=== PATIENT | female | born 1950 | race Two or more races ===

== ENCOUNTER 2021-03-23 10:07 | Inpatient (IN) | payer MEDICAID, OTHER ==
[~2021-03-23] VITALS: Ht 152.4 cm; Wt 86.2 kg
[2021-03-23 11:08] LABS: Hematocrit 38.9 % (36.0-46.0); Hemoglobin 12.6 g/dL (12.2-16.2); Mean Corpuscular Hemoglobin 30.7 pg (28.0-32.0); Mean Corpuscular Hgb Conc. 32.4 g/dL (32.0-36.0); Mean Corpuscular Volume 94.6 fL (80.0-100.0); Red Blood Cells 4.12 10^6/uL (4.0-5.20); Red Cell Distribution Width 13.7 % (11.8-14.3); White Blood Cell 29.1 10^3/uL (4.4-10.8)
[2021-03-23 11:15] LABS: Basophils % (manual) 0 (0.0-2.0); Blast Cells 0; Eosinophils % (manual) 0 (0-7); Metamyelocytes % 0; Myelocytes % 0; Promyelocytes % 0; Reactive Lymphocytes 0
[2021-03-23 11:22] LABS: Albumin 1.4 g/dL (3.4-5.0); Calcium 8.7 mg/dL (8.5-10.1); Potassium 3.7 mmol/L (3.5-5.1)
[2021-03-23 11:31] LABS: Total Protein 7.1 g/dL (6.4-8.2)
[2021-03-23] MEDS ORDERED: InsuLIN R (HUMAN) 100 UNITS in SODIUM CHL 0.9% 99 ML IV SCH (11:45)
[2021-03-23] MEDS ORDERED: SODIUM CHLORIDE 0.9% 1,000 ML IV ONE ×2 (11:45)
[2021-03-23] MEDS ORDERED: DEXTROSE (50%) 50ML SYRG IV PRN (11:45)
[2021-03-23] MEDS ORDERED: metroNIDAZOLE 500MG/100ML 100 ML IV ONE (11:45)
[2021-03-23] MEDS ORDERED: INSULIN LANTUS (GLARGINE) 1 /0.01ml (100units/ml) SC ONE (11:45)
[2021-03-23] MEDS ORDERED: cefTRIAXone 1GM/50ML D5W 50 ML IV ONE ×2 (11:45→22:57)
[2021-03-23] MEDS: ACCU-CHEK COMFORT CURVE STRIP VI SCH ×8 (12:58→23:08)
[2021-03-23 13:19] LABS: Lactic Acid w/Reflex 7.4 mmol/L (0.4-2.0)
[2021-03-23 13:25] LABS: Band Neutrophils % (manual) 39; Lymphocytes % (manual) 1 (10.0-50.0); Monocytes % (manual) 2 (0-12)
[2021-03-23 14:12] LABS: Urine Bacteria NONE SEEN /hpf (None Seen); Urine Blood Negative /uL (Negative); Urine Hyaline Cast FEW /lpf (0 - 2); Urine Specific Gravity 1.018 (1.001-1.035); Urine WBC 6 /hpf (0 - 5)
[2021-03-23] MEDS ORDERED: HYDROmorphone HCL 2 MG/ML VL IV ONE (14:45)
[2021-03-23] MEDS ORDERED: NITROGLYCERIN 0.4 MG SL TAB SL PRN (15:30)
[2021-03-23] MEDS ORDERED: SODIUM CHLORIDE 0.9% 3,000 ML IV ONE (15:30)
[2021-03-23] MEDS ORDERED: MORPHINE SULFATE INJECTION 2 MG/ML SYRG IV PRN (15:30)
[2021-03-23 16:01] LABS: INR 1.77 (0.9-1.15); Partial Thromboplastin Time 36.5 sec (23.6-33.0)
[2021-03-23] MEDS ORDERED: PHYTONADIONE (VIT K)10 MG/ML 1ML VIAL IV ONE (18:15)
[2021-03-23] MEDS ORDERED: phytonadione 10 MG in SODIUM CHL 0.9% 50 ML IV ONE (18:30)
[2021-03-23] MEDS ORDERED: SODIUM CHLORIDE 0.9% 1,000 ML IV SCH (19:30)
[2021-03-23] MEDS ORDERED: LACTATED RINGER'S 2,000 ML IV ONE (19:30)
[2021-03-23] MEDS ORDERED: LORazepam 0.5 MG TAB PO PRN (19:30)
[2021-03-23] MEDS ORDERED: SOD CHL 0.9%/ KCL 20MEQ 1,000 ML IV PRN (19:30)
[2021-03-23] MEDS ORDERED: DOCUSATE SOD 100 MG CAP PO PRN (19:30)
[2021-03-23] MEDS ORDERED: LACTULOSE 20Gm/30ML SOLN PO PRN (19:30)
[2021-03-23] MEDS ORDERED: HYDROcodone-ACET 5/325MG TAB PO PRN ×2 (19:30)
[2021-03-23] MEDS ORDERED: hydrALAZINE HCL 20 MG/ML VL IV PRN (19:30)
[2021-03-23] MEDS ORDERED: IPRATROPIUM BROM 0.5 MG/2.5ML INH SOL NEB ONE (19:30)
[2021-03-23] MEDS ORDERED: D5W/SOD CHLO 0.9% 1,000 ML IV PRN (19:30)
[2021-03-23] MEDS ORDERED: IPRATROPIUM BROM 0.5 MG/2.5ML INH SOL NEB SCH (22:00)
[2021-03-23] MEDS ORDERED: metroNIDAZOLE 500MG/100ML 100 ML IV SCH (22:00)
[2021-03-23 22:45] LABS: Albumin 1.1 g/dL (3.4-5.0); Calcium 7.2 mg/dL (8.5-10.1); Potassium 3.7 mmol/L (3.5-5.1)
[2021-03-23] MEDS: metroNIDAZOLE 500MG/100ML 100 ML IV SCH (22:51)
[2021-03-23] MEDS: CEFEPIME 1 GM in SODIUM CHL 0.9% 50 ML IV SCH (22:51)
[2021-03-23] MEDS: PANTOPRAZOLE 40 MG/10 ML VIAL INJ IV SCH (22:52)
[2021-03-23 22:54] LABS: INR 1.64 (0.9-1.15); Partial Thromboplastin Time 30.2 sec (23.6-33.0)
[2021-03-23 23:03] LABS: BUN/Creatinine Ratio 59.3; Bilirubin, Total 1.6 mg/dL (0.2-1.0); Phosphorus 3.5 mg/dL (2.5-4.90); Total Protein 5.8 g/dL (6.4-8.2)
[2021-03-24] VITALS (35 sets, daily range): BP systolic 85–167; BP diastolic 34–87
[2021-03-24] MEDS: SODIUM CHLORIDE 0.9% 1,000 ML IV SCH ×4 (00:09→19:45)
[2021-03-24] MEDS: ACCU-CHEK COMFORT CURVE STRIP VI SCH ×8 (00:09→18:00)
[2021-03-24] MEDS: CEFEPIME 1 GM in SODIUM CHL 0.9% 50 ML IV SCH ×3 (07:37→21:00)
[2021-03-24 07:39] LABS: Hematocrit 34.6 % (36.0-46.0); Hemoglobin 11.2 g/dL (12.2-16.2); Mean Corpuscular Hemoglobin 29.7 pg (28.0-32.0); Mean Corpuscular Hgb Conc. 32.3 g/dL (32.0-36.0); Mean Corpuscular Volume 92.1 fL (80.0-100.0); Red Blood Cells 3.76 10^6/uL (4.0-5.20); Red Cell Distribution Width 13.6 % (11.8-14.3); White Blood Cell 24.9 10^3/uL (4.4-10.8)
[2021-03-24 07:45] LABS: Basophils % (manual) 0 (0.0-2.0); Blast Cells 0; Eosinophils % (manual) 0 (0-7); Myelocytes % 0; Promyelocytes % 0; Reactive Lymphocytes 0
[2021-03-24] MEDS: metroNIDAZOLE 500MG/100ML 100 ML IV SCH ×2 (08:01→18:46)
[2021-03-24 08:05] LABS: INR 1.21 (0.9-1.15); Partial Thromboplastin Time 27.5 sec (23.6-33.0)
[2021-03-24 08:07] LABS: Albumin 1.3 g/dL (3.4-5.0); Anion Gap 9 (5-15); Blood Urea Nitrogen 77 mg/dL (7-18); Calcium 7.6 mg/dL (8.5-10.1); Carbon Dioxide 23 mmol/L (21-32); Chloride 105 mmol/L (98-107); Cholesterol 85 mg/dL (< 200); Glucose 118 mg/dL (74-106); Lipase < 10 U/L (73-393); Magnesium 2.4 mg/dL (1.6-2.6); Potassium 3.5 mmol/L (3.5-5.1); Sodium 137 mmol/L (136-145)
[2021-03-24 08:15] LABS: Alanine Aminotransferase 76 U/L (13-56); Alkaline Phosphatase 173 U/L (45-117); Aspartate Aminotransferase 118 U/L (15-37); BUN/Creatinine Ratio 81.1; Bilirubin, Total 2.3 mg/dL (0.2-1.0); GFR African American 75 mL/min; GFR Non-African American 62 mL/min; HDL Cholesterol 10 mg/dL (40-59); LDL Cholesterol 49 mg/dL (< 100); Phosphorus 3.6 mg/dL (2.5-4.90); Total Protein 6.1 g/dL (6.4-8.2); Triglycerides 135 mg/dL (< 150); Uric Acid 9.2 mg/dL (2.6-6.0)
[2021-03-24 08:39] LABS: CRP High Sensitivity > 19 mg/dL (< 0.3)
[2021-03-24] MEDS ORDERED: cefTRIAXone 1GM/50ML D5W 50 ML IV SCH (09:00)
[2021-03-24] MEDS ORDERED: INSULIN LANTUS (GLARGINE) 1 /0.01ml (100units/ml) SC SCH (10:00)
[2021-03-24] MEDS: PANTOPRAZOLE 40 MG/10 ML VIAL INJ IV SCH ×2 (10:00→21:01)
[2021-03-24 10:11] LABS: Band Neutrophils % (manual) 29; Lymphocytes % (manual) 4 (10.0-50.0); Metamyelocytes % 2; Monocytes % (manual) 3 (0-12)
[2021-03-24] MEDS: HYDROmorphone HCL 2 MG/ML VL IV PRN ×2 (11:14→20:53)
[2021-03-24] MEDS ORDERED: DEXTROSE (50%) 50ML SYRG IV PRN (11:30)
[2021-03-24] MEDS: InsuLIN REG 1unit/0.01ml Soln (100units/ml) SC SCH ×2 (13:00→19:51)
[2021-03-24] MEDS ORDERED: LIDOCAINE 2% (LOCAL ANESTH.) PF 5ml SDV ONE (15:26)
[2021-03-24] MEDS: NOREPINEPHRINE 8 MG/250ML KIT 250 ML IV SCH (16:00)
[2021-03-24] MEDS ORDERED: LIDOCAINE 2%HCL (LOCAL ANESTH.) INJ 20ML MDV ONE ×2 (16:37→16:39)
[2021-03-24] MEDS ORDERED: fentaNYL CITRATE 100 MCG/2 ML VL ONE (16:39)
[2021-03-24] MEDS ORDERED: MIDAZOLAM HCL 2MG/2ML 2ml VIAL (1mg/ml) ONE (16:39)
[2021-03-24] MEDS ORDERED: LIDOCAINE 1% (LOCAL ANESTH.) PF 5ml SDV ID ONE (18:45)
[2021-03-24 19:08] LABS: Hematocrit 31.5 % (36.0-46.0); Hemoglobin 10.6 g/dL (12.2-16.2)
[2021-03-24] MEDS: ONDANSETRON HCL 4 MG/2 ML VIAL IV PRN (20:52)
[2021-03-24] MEDS: SODIUM CHLOR 0.9% PF (SALINE LOCK) 10ML VIAL/SYR IV SCH (21:02)
[2021-03-25] VITALS (59 sets, daily range): BP systolic 102–176; BP diastolic 39–55
[2021-03-25] MEDS: ACCU-CHEK COMFORT CURVE STRIP VI SCH ×5 (00:06→23:57)
[2021-03-25] MEDS: InsuLIN REG 1unit/0.01ml Soln (100units/ml) SC SCH ×5 (00:07→23:58)
[2021-03-25] MEDS: HYDROmorphone HCL 2 MG/ML VL IV PRN ×3 (02:39→23:04)
[2021-03-25] MEDS: ONDANSETRON HCL 4 MG/2 ML VIAL IV PRN ×2 (02:40→23:03)
[2021-03-25] MEDS: metroNIDAZOLE 500MG/100ML 100 ML IV SCH ×3 (02:45→18:21)
[2021-03-25 04:40] LABS: Basophils # (auto) 0 10 ^3/uL (0-0.2); Basophils % (auto) 0.1 % (0.0-2.0); Eosinophils # (auto) 0 10 ^3/uL (0-0.8); Hematocrit 30.5 % (36.0-46.0); Hemoglobin 10.4 g/dL (12.2-16.2); Lymphocytes # (auto) 0.3 10 ^3/uL (0.4-5.4); Lymphocytes % (auto) 1.9 % (10.0-50.0); Mean Corpuscular Hemoglobin 31.4 pg (28.0-32.0); Mean Corpuscular Volume 92.5 fL (80.0-100.0); Monocytes # (auto) 0.5 10 ^3/uL (0-1.3); Monocytes % (auto) 2.9 % (0.0-12.0); Neutrophils # (auto) 16.1 10 ^3/uL (1.6-8.6); Neutrophils % (auto) 95.1 % (37.0-80.0); Nucleated Red Blood Cells % 0.1 %; White Blood Cell 16.9 10^3/uL (4.4-10.8)
[2021-03-25 05:02] LABS: Albumin 1.1 g/dL (3.4-5.0); Calcium 7.6 mg/dL (8.5-10.1); Potassium 3.7 mmol/L (3.5-5.1)
[2021-03-25 05:04] LABS: BUN/Creatinine Ratio 102.6
[2021-03-25 05:06] LABS: Bilirubin, Total 2.3 mg/dL (0.2-1.0); Total Protein 5.5 g/dL (6.4-8.2)
[2021-03-25] MEDS: CEFEPIME 1 GM in SODIUM CHL 0.9% 50 ML IV SCH ×2 (06:15→12:59)
[2021-03-25] MEDS: SODIUM CHLOR 0.9% PF (SALINE LOCK) 10ML VIAL/SYR IV SCH ×2 (11:15→23:03)
[2021-03-25] MEDS: PANTOPRAZOLE 40 MG/10 ML VIAL INJ IV SCH ×2 (11:15→23:03)
[2021-03-25] MEDS: SODIUM CHLORIDE 0.9% 1,000 ML IV SCH (13:01)
[2021-03-25] MEDS ORDERED: ERTAPENEM SOD INJ 1 GM in SODIUM CHL 0.9% 50 ML IV ONE (15:00)
[2021-03-25] MEDS: NOREPINEPHRINE 8 MG/250ML KIT 250 ML IV SCH (16:00)
[2021-03-26] VITALS (81 sets, daily range): BP systolic 110–154; BP diastolic 39–57
[2021-03-26] MEDS: metroNIDAZOLE 500MG/100ML 100 ML IV SCH ×4 (01:37→17:59)
[2021-03-26] MEDS: SODIUM CHLORIDE 0.9% 1,000 ML IV SCH ×2 (01:53→03:45)
[2021-03-26 05:46] LABS: Hematocrit 32.2 % (36.0-46.0); Hemoglobin 10.6 g/dL (12.2-16.2); Mean Corpuscular Hemoglobin 30.9 pg (28.0-32.0); Mean Corpuscular Volume 93.6 fL (80.0-100.0); Red Blood Cells 3.44 10^6/uL (4.0-5.20); Red Cell Distribution Width 14.3 % (11.8-14.3); White Blood Cell 16.2 10^3/uL (4.4-10.8)
[2021-03-26] MEDS: ACCU-CHEK COMFORT CURVE STRIP VI SCH ×3 (05:54→17:45)
[2021-03-26] MEDS: InsuLIN REG 1unit/0.01ml Soln (100units/ml) SC SCH ×3 (05:56→17:48)
[2021-03-26 06:07] LABS: BUN/Creatinine Ratio 110.3; Calcium 7.5 mg/dL (8.5-10.1); Potassium 3.7 mmol/L (3.5-5.1)
[2021-03-26 06:10] LABS: Bilirubin, Total 2.1 mg/dL (0.2-1.0); Total Protein 5.2 g/dL (6.4-8.2)
[2021-03-26 06:26] LABS: Basophils % (manual) 0 (0.0-2.0); Blast Cells 0; Eosinophils % (manual) 0 (0-7); Metamyelocytes % 0; Myelocytes % 0; Promyelocytes % 0; Reactive Lymphocytes 0
[2021-03-26 09:25] LABS: Band Neutrophils % (manual) 28; Lymphocytes % (manual) 2 (10.0-50.0); Monocytes % (manual) 6 (0-12)
[2021-03-26] MEDS: SODIUM CHLOR 0.9% PF (SALINE LOCK) 10ML VIAL/SYR IV SCH ×2 (10:20→21:50)
[2021-03-26] MEDS: ERTAPENEM SOD INJ 1 GM in SODIUM CHL 0.9% 50 ML IV SCH (10:20)
[2021-03-26] MEDS: PANTOPRAZOLE 40 MG/10 ML VIAL INJ IV SCH ×2 (10:21→21:50)
[2021-03-26] MEDS: D5W/SOD CHL 0.45%/KCL 20MEQ 1,000 ML IV SCH (11:46)
[2021-03-26] MEDS: HYDROmorphone HCL 2 MG/ML VL IV PRN (22:33)
[2021-03-27] VITALS (82 sets, daily range): BP systolic 112–155; BP diastolic 36–53
[2021-03-27] MEDS: ACCU-CHEK COMFORT CURVE STRIP VI SCH ×4 (00:03→17:54)
[2021-03-27] MEDS: InsuLIN REG 1unit/0.01ml Soln (100units/ml) SC SCH ×4 (00:04→17:55)
[2021-03-27] MEDS: D5W/SOD CHL 0.45%/KCL 20MEQ 1,000 ML IV SCH ×3 (04:21→14:21)
[2021-03-27 04:44] LABS: Basophils # (auto) 0 10 ^3/uL (0-0.2); Basophils % (auto) 0.2 % (0.0-2.0); Eosinophils # (auto) 0 10 ^3/uL (0-0.8); Hematocrit 31.9 % (36.0-46.0); Hemoglobin 10.6 g/dL (12.2-16.2); Lymphocytes # (auto) 0.3 10 ^3/uL (0.4-5.4); Lymphocytes % (auto) 2.3 % (10.0-50.0); Mean Corpuscular Hemoglobin 31.4 pg (28.0-32.0); Mean Corpuscular Hgb Conc. 33.3 g/dL (32.0-36.0); Mean Corpuscular Volume 94.4 fL (80.0-100.0); Monocytes # (auto) 0.5 10 ^3/uL (0-1.3); Monocytes % (auto) 3.7 % (0.0-12.0); Neutrophils # (auto) 12.7 10 ^3/uL (1.6-8.6); Neutrophils % (auto) 93.8 % (37.0-80.0); Nucleated Red Blood Cells % 0.2 %; Red Blood Cells 3.38 10^6/uL (4.0-5.20); Red Cell Distribution Width 14.8 % (11.8-14.3); White Blood Cell 13.6 10^3/uL (4.4-10.8)
[2021-03-27 05:00] LABS: Calcium 7.7 mg/dL (8.5-10.1)
[2021-03-27 05:03] LABS: BUN/Creatinine Ratio 92.4
[2021-03-27 05:06] LABS: Bilirubin, Total 2.1 mg/dL (0.2-1.0); Total Protein 5.4 g/dL (6.4-8.2)
[2021-03-27 05:37] LABS: Albumin 0.9 g/dL (3.4-5.0)
[2021-03-27] MEDS: metroNIDAZOLE 500MG/100ML 100 ML IV SCH ×2 (09:05→17:54)
[2021-03-27] MEDS: ERTAPENEM SOD INJ 1 GM in SODIUM CHL 0.9% 50 ML IV SCH (09:06)
[2021-03-27] MEDS: SODIUM CHLOR 0.9% PF (SALINE LOCK) 10ML VIAL/SYR IV SCH ×2 (09:06→22:18)
[2021-03-27] MEDS: PANTOPRAZOLE 40 MG/10 ML VIAL INJ IV SCH ×2 (09:06→22:18)
[2021-03-28] VITALS (64 sets, daily range): BP systolic 100–144; BP diastolic 26–60
[2021-03-28] MEDS: HYDROmorphone HCL 2 MG/ML VL IV PRN (00:01)
[2021-03-28] MEDS: ACCU-CHEK COMFORT CURVE STRIP VI SCH ×4 (00:01→18:18)
[2021-03-28] MEDS: InsuLIN REG 1unit/0.01ml Soln (100units/ml) SC SCH ×4 (00:02→18:27)
[2021-03-28] MEDS: metroNIDAZOLE 500MG/100ML 100 ML IV SCH ×3 (02:00→18:16)
[2021-03-28 04:49] LABS: Basophils # (auto) 0 10 ^3/uL (0-0.2); Eosinophils # (auto) 0 10 ^3/uL (0-0.8); Monocytes # (auto) 0.4 10 ^3/uL (0-1.3); Nucleated Red Blood Cells % 0.5 %; White Blood Cell 12.9 10^3/uL (4.4-10.8)
[2021-03-28 04:52] LABS: Basophils % (auto) 0.1 % (0.0-2.0); Eosinophils % (auto) 0.1 % (0.0-7.0); Hematocrit 30.2 % (36.0-46.0); Hemoglobin 9.3 g/dL (12.2-16.2); Lymphocytes # (auto) 0.4 10 ^3/uL (0.4-5.4); Lymphocytes % (auto) 3.3 % (10.0-50.0); Mean Corpuscular Hemoglobin 31.1 pg (28.0-32.0); Mean Corpuscular Hgb Conc. 30.8 g/dL (32.0-36.0); Mean Corpuscular Volume 101.1 fL (80.0-100.0); Neutrophils # (auto) 12.1 10 ^3/uL (1.6-8.6); Neutrophils % (auto) 93.5 % (37.0-80.0); Red Blood Cells 2.99 10^6/uL (4.0-5.20); Red Cell Distribution Width 15.8 % (11.8-14.3)
[2021-03-28] MEDS: SODIUM CHLOR 0.9% PF (SALINE LOCK) 10ML VIAL/SYR IV SCH ×2 (10:00→22:34)
[2021-03-28] MEDS: PANTOPRAZOLE 40 MG/10 ML VIAL INJ IV SCH ×2 (11:42→22:34)
[2021-03-28] MEDS: ERTAPENEM SOD INJ 1 GM in SODIUM CHL 0.9% 50 ML IV SCH (11:42)
[2021-03-28 15:14] LABS: Anion Gap 1 (5-15); BUN/Creatinine Ratio 94.9; Blood Urea Nitrogen 75 mg/dL (7-18); Carbon Dioxide 24 mmol/L (21-32); Chloride 131 mmol/L (98-107); GFR African American 93 mL/min; GFR Non-African American 76 mL/min; Glucose 313 mg/dL (74-106); Sodium 156 mmol/L (136-145)
[2021-03-28 15:15] LABS: Alanine Aminotransferase 37 U/L (13-56); Alkaline Phosphatase 205 U/L (45-117); Aspartate Aminotransferase 56 U/L (15-37); Bilirubin, Total 2.2 mg/dL (0.2-1.0); Calcium 7.7 mg/dL (8.5-10.1); Total Protein 5.5 g/dL (6.4-8.2)
[2021-03-28 15:26] LABS: Albumin 0.9 g/dL (3.4-5.0); Potassium 6.1 mmol/L (3.5-5.1)
[2021-03-28] MEDS: D5W/SOD CHL 0.45%/KCL 20MEQ 1,000 ML IV SCH (15:35)
[2021-03-29] VITALS (86 sets, daily range): BP systolic 88–168; BP diastolic 22–73
[2021-03-29] MEDS: ACCU-CHEK COMFORT CURVE STRIP VI SCH ×4 (00:20→18:40)
[2021-03-29] MEDS: HYDROmorphone HCL 2 MG/ML VL IV PRN ×3 (00:20→16:10)
[2021-03-29] MEDS: InsuLIN REG 1unit/0.01ml Soln (100units/ml) SC SCH ×4 (00:22→18:35)
[2021-03-29] MEDS: metroNIDAZOLE 500MG/100ML 100 ML IV SCH ×3 (02:01→18:58)
[2021-03-29 04:33] LABS: White Blood Cell 17.3 10^3/uL (4.4-10.8)
[2021-03-29 04:36] LABS: Hematocrit 32.4 % (36.0-46.0); Hemoglobin 10.6 g/dL (12.2-16.2); Mean Corpuscular Hemoglobin 31.1 pg (28.0-32.0); Mean Corpuscular Hgb Conc. 32.6 g/dL (32.0-36.0); Mean Corpuscular Volume 95.5 fL (80.0-100.0); Red Blood Cells 3.39 10^6/uL (4.0-5.20); Red Cell Distribution Width 15.2 % (11.8-14.3)
[2021-03-29 04:48] LABS: Basophils % (manual) 0 (0.0-2.0); Blast Cells 0; Eosinophils % (manual) 0 (0-7); Metamyelocytes % 0; Promyelocytes % 0; Reactive Lymphocytes 0
[2021-03-29] MEDS: D5W/SOD CHL 0.45%/KCL 20MEQ 1,000 ML IV SCH (04:55)
[2021-03-29 05:17] LABS: Calcium 7.9 mg/dL (8.5-10.1); Potassium 5.4 mmol/L (3.5-5.1)
[2021-03-29 05:21] LABS: BUN/Creatinine Ratio 101.2; Bilirubin, Total 2.1 mg/dL (0.2-1.0); Total Protein 5.2 g/dL (6.4-8.2)
[2021-03-29 05:33] LABS: Albumin 0.9 g/dL (3.4-5.0)
[2021-03-29 07:17] LABS: Band Neutrophils % (manual) 40; Lymphocytes % (manual) 3 (10.0-50.0); Monocytes % (manual) 3 (0-12); Myelocytes % 3
[2021-03-29] MEDS: ERTAPENEM SOD INJ 1 GM in SODIUM CHL 0.9% 50 ML IV SCH (09:28)
[2021-03-29] MEDS: PANTOPRAZOLE 40 MG/10 ML VIAL INJ IV SCH ×2 (09:28→21:53)
[2021-03-29] MEDS: SODIUM CHLOR 0.9% PF (SALINE LOCK) 10ML VIAL/SYR IV SCH ×2 (09:28→21:55)
[2021-03-29] MEDS: D5W 5% 1,000 ML IV SCH (11:20)
[2021-03-29 18:11] LABS: INR 1.66 (0.9-1.15); Partial Thromboplastin Time 36.2 sec (23.6-33.0)
[2021-03-30] VITALS (51 sets, daily range): BP systolic 96–163; BP diastolic 32–78
[2021-03-30] MEDS: ACCU-CHEK COMFORT CURVE STRIP VI SCH ×5 (00:04→23:30)
[2021-03-30] MEDS: InsuLIN REG 1unit/0.01ml Soln (100units/ml) SC SCH ×5 (00:05→23:35)
[2021-03-30] MEDS: D5W 5% 1,000 ML IV SCH ×4 (00:07→20:53)
[2021-03-30] MEDS: metroNIDAZOLE 500MG/100ML 100 ML IV SCH ×2 (02:30→09:10)
[2021-03-30 04:31] LABS: Basophils # (auto) 0 10 ^3/uL (0-0.2); Basophils % (auto) 0.2 % (0.0-2.0); Eosinophils # (auto) 0 10 ^3/uL (0-0.8); Lymphocytes # (auto) 0.6 10 ^3/uL (0.4-5.4); Lymphocytes % (auto) 4.4 % (10.0-50.0); Mean Corpuscular Volume 96.6 fL (80.0-100.0); Nucleated Red Blood Cells % 0.2 %
[2021-03-30 04:32] LABS: Eosinophils % (auto) 0.1 % (0.0-7.0); Mean Corpuscular Hemoglobin 31.2 pg (28.0-32.0); Mean Corpuscular Hgb Conc. 32.3 g/dL (32.0-36.0); Monocytes # (auto) 0.4 10 ^3/uL (0-1.3); Monocytes % (auto) 2.9 % (0.0-12.0); Neutrophils % (auto) 92.4 % (37.0-80.0); Red Cell Distribution Width 14.9 % (11.8-14.3)
[2021-03-30 04:52] LABS: Albumin 1.1 g/dL (3.4-5.0); BUN/Creatinine Ratio 81.4; Calcium 7.4 mg/dL (8.5-10.1); Potassium 5.1 mmol/L (3.5-5.1)
[2021-03-30 04:55] LABS: Total Protein 5.2 g/dL (6.4-8.2)
[2021-03-30] MEDS: PANTOPRAZOLE 40 MG/10 ML VIAL INJ IV SCH ×2 (09:10→22:34)
[2021-03-30] MEDS: SODIUM CHLOR 0.9% PF (SALINE LOCK) 10ML VIAL/SYR IV SCH ×2 (09:11→22:34)
[2021-03-30] MEDS: ERTAPENEM SOD INJ 1 GM in SODIUM CHL 0.9% 50 ML IV SCH (10:50)
[2021-03-30] MEDS: AMPICILLIN INJ 1 GM in SODIUM CHL 0.9% 50 ML IV SCH ×2 (12:12→18:00)
[2021-03-30] MEDS: ONDANSETRON HCL 4 MG/2 ML VIAL IV PRN (23:10)
[2021-03-30] MEDS: HYDROmorphone HCL 2 MG/ML VL IV PRN (23:10)
[2021-03-31] VITALS (15 sets, daily range): BP systolic 86–155; BP diastolic 25–50
[2021-03-31 04:25] LABS: INR 1.48 (0.9-1.15)
[2021-03-31 04:26] LABS: Potassium 5.1 mmol/L (3.5-5.1)
[2021-03-31 04:32] LABS: Albumin 1.1 g/dL (3.4-5.0); BUN/Creatinine Ratio 108.3; Bilirubin, Total 2.3 mg/dL (0.2-1.0); Calcium 7.7 mg/dL (8.5-10.1); Magnesium 2.7 mg/dL (1.6-2.6); Phosphorus 3.5 mg/dL (2.5-4.90); Total Protein 5.6 g/dL (6.4-8.2)
[2021-03-31] MEDS: ONDANSETRON HCL 4 MG/2 ML VIAL IV PRN (06:10)
[2021-03-31] MEDS: HYDROmorphone HCL 2 MG/ML VL IV PRN (06:11)
[2021-03-31] MEDS: AMPICILLIN INJ 1 GM in SODIUM CHL 0.9% 50 ML IV SCH ×4 (06:11→23:45)
[2021-03-31] MEDS: ACCU-CHEK COMFORT CURVE STRIP VI SCH ×4 (06:12→23:45)
[2021-03-31] MEDS: InsuLIN REG 1unit/0.01ml Soln (100units/ml) SC SCH ×4 (06:59→23:48)
[2021-03-31 08:03] LABS: Urine Bacteria FEW /hpf (None Seen); Urine Blood 1+ /uL (Negative); Urine Specific Gravity 1.017 (1.001-1.035); Urine WBC 6 /hpf (0 - 5)
[2021-03-31 08:13] LABS: Protein, Urine 58.3 mg/dL (0.0-11.9); Sodium Urine < 5 mmol/L (40-220)
[2021-03-31 08:16] LABS: Creatinine, Urine 38 mg/dL (30.0-125.0)
[2021-03-31 08:32] LABS: Basophils # (auto) 0 10 ^3/uL (0-0.2); Eosinophils # (auto) 0 10 ^3/uL (0-0.8); Hemoglobin 9.6 g/dL (12.2-16.2); Lymphocytes # (auto) 0.6 10 ^3/uL (0.4-5.4); Mean Corpuscular Hemoglobin 31.3 pg (28.0-32.0); Mean Corpuscular Volume 95.8 fL (80.0-100.0); Monocytes # (auto) 0.2 10 ^3/uL (0-1.3); Neutrophils # (auto) 6.7 10 ^3/uL (1.6-8.6); Nucleated Red Blood Cells % 0.3 %; White Blood Cell 7.5 10^3/uL (4.4-10.8)
[2021-03-31 08:34] LABS: Basophils % (auto) 0.4 % (0.0-2.0); Eosinophils % (auto) 0.3 % (0.0-7.0); Hematocrit 29.4 % (36.0-46.0); Lymphocytes % (auto) 7.9 % (10.0-50.0); Mean Corpuscular Hgb Conc. 32.7 g/dL (32.0-36.0); Monocytes % (auto) 2.6 % (0.0-12.0); Neutrophils % (auto) 88.8 % (37.0-80.0); Red Blood Cells 3.07 10^6/uL (4.0-5.20); Red Cell Distribution Width 15.4 % (11.8-14.3)
[2021-03-31] MEDS ORDERED: DEXTROSE (50%) 50ML SYRG IV PRN (09:15)
[2021-03-31] MEDS: SODIUM CHLOR 0.9% PF (SALINE LOCK) 10ML VIAL/SYR IV SCH ×2 (09:29→21:28)
[2021-03-31] MEDS: PANTOPRAZOLE 40 MG/10 ML VIAL INJ IV SCH ×2 (09:29→21:28)
[2021-03-31] MEDS: ERTAPENEM SOD INJ 1 GM in SODIUM CHL 0.9% 50 ML IV SCH (09:33)
[2021-03-31] MEDS: INSULIN LANTUS (GLARGINE) 1 /0.01ml (100units/ml) SC SCH ×2 (11:04→22:36)
[2021-03-31 11:39] LABS: Free T4 (Free Thyroxine) 0.48 ng/dL (0.89-1.76)
[2021-03-31 11:40] LABS: Free T3 1.84 pg/mL (2.3-4.2)
[2021-03-31] MEDS: D5W 5% 1,000 ML IV SCH ×2 (14:28→23:38)
[2021-03-31] MEDS ORDERED: PPN PER PHARMACY 0 ML IV SCH (14:45)
[2021-03-31] MEDS ORDERED: LEVOTHYROXINE SODIUM 100 MCG/5 ML INJ IV ONE (14:45)
[2021-03-31] MEDS ORDERED: AMINO ACID INFUSION IN D10W 1,000 ML IV NR (20:00)
[2021-04-01] VITALS (25 sets, daily range): BP systolic 106–180; BP diastolic 35–82
[2021-04-01] MEDS ORDERED: DEXTROSE (50%) 50ML SYRG IV SCH
[2021-04-01 03:29] LABS: Hemoglobin 9.1 g/dL (12.2-16.2); Red Cell Distribution Width 15.1 % (11.8-14.3)
[2021-04-01 03:33] LABS: Hematocrit 27.4 % (36.0-46.0); Mean Corpuscular Hemoglobin 31.7 pg (28.0-32.0); Mean Corpuscular Hgb Conc. 33.4 g/dL (32.0-36.0); Mean Corpuscular Volume 94.9 fL (80.0-100.0); Red Blood Cells 2.89 10^6/uL (4.0-5.20); White Blood Cell 7.6 10^3/uL (4.4-10.8)
[2021-04-01 03:43] LABS: INR 1.55 (0.9-1.15)
[2021-04-01 03:54] LABS: Basophils % (manual) 0 (0.0-2.0); Blast Cells 0; Eosinophils % (manual) 0 (0-7); Metamyelocytes % 0; Promyelocytes % 0; Reactive Lymphocytes 0
[2021-04-01 04:39] LABS: Alanine Aminotransferase 23 U/L (13-56); Anion Gap 3 (5-15); Aspartate Aminotransferase 40 U/L (15-37); BUN/Creatinine Ratio 106.1; Calcium 7.4 mg/dL (8.5-10.1); Carbon Dioxide 25 mmol/L (21-32); Chloride 124 mmol/L (98-107); GFR African American 89 mL/min; GFR Non-African American 73 mL/min; Glucose 316 mg/dL (74-106); Magnesium 2.3 mg/dL (1.6-2.6); Potassium 4.6 mmol/L (3.5-5.1); Sodium 152 mmol/L (136-145)
[2021-04-01 04:42] LABS: Alkaline Phosphatase 157 U/L (45-117); Bilirubin, Total 1.8 mg/dL (0.2-1.0); Phosphorus 3.2 mg/dL (2.5-4.90); Total Protein 4.7 g/dL (6.4-8.2)
[2021-04-01 04:47] LABS: Albumin 0.8 g/dL (3.4-5.0); Blood Urea Nitrogen 87 mg/dL (7-18)
[2021-04-01 05:06] LABS: Pre Albumin < 3.0 mg/dL (20.0-40.0); Triglycerides 125 mg/dL (< 150)
[2021-04-01 05:10] LABS: Lymphocytes % (manual) 11 (10.0-50.0); Myelocytes % 2
[2021-04-01 05:11] LABS: Monocytes % (manual) 5 (0-12)
[2021-04-01 05:12] LABS: Band Neutrophils % (manual) 25
[2021-04-01] MEDS: InsuLIN REG 1unit/0.01ml Soln (100units/ml) SC SCH ×3 (06:00→17:27)
[2021-04-01] MEDS: ACCU-CHEK COMFORT CURVE STRIP VI SCH ×3 (06:00→17:29)
[2021-04-01] MEDS: AMPICILLIN INJ 1 GM in SODIUM CHL 0.9% 50 ML IV SCH ×4 (06:01→23:48)
[2021-04-01] MEDS: PANTOPRAZOLE 40 MG/10 ML VIAL INJ IV SCH ×2 (09:47→21:44)
[2021-04-01] MEDS: SODIUM CHLOR 0.9% PF (SALINE LOCK) 10ML VIAL/SYR IV SCH ×2 (09:47→21:45)
[2021-04-01] MEDS: ERTAPENEM SOD INJ 1 GM in SODIUM CHL 0.9% 50 ML IV SCH (09:50)
[2021-04-01] MEDS: D5W 5% 1,000 ML IV SCH ×3 (09:57→20:23)
[2021-04-01] MEDS: LEVOTHYROXINE SODIUM 100 MCG/5 ML INJ IV SCH (09:57)
[2021-04-01] MEDS: INSULIN LANTUS (GLARGINE) 1 /0.01ml (100units/ml) SC SCH ×2 (11:07→21:45)
[2021-04-01] MEDS: ALBUMIN 25% 100 ML IV SCH ×2 (12:22→20:23)
[2021-04-01] MEDS ORDERED: TPN PER PHARMACY 0 ML IV SCH (12:45)
[2021-04-01] MEDS ORDERED: FUROSEMIDE 40 MG/4 ML VIAL IV ONE (13:00)
[2021-04-01] MEDS ORDERED: PPN PER PHARMACY IV NR ×7 (20:00)
[2021-04-01] MEDS: TPN PER PHARMACY IV NR ×8 (20:22)
[2021-04-02] VITALS (30 sets, daily range): BP systolic 106–168; BP diastolic 31–57
[2021-04-02] MEDS: InsuLIN REG 1unit/0.01ml Soln (100units/ml) SC SCH ×4 (00:05→17:27)
[2021-04-02] MEDS: ACCU-CHEK COMFORT CURVE STRIP VI SCH ×4 (00:05→17:32)
[2021-04-02 04:05] LABS: Potassium 3.6 mmol/L (3.5-5.1)
[2021-04-02 04:09] LABS: Albumin 1.2 g/dL (3.4-5.0); BUN/Creatinine Ratio 98.4; Calcium 7.3 mg/dL (8.5-10.1); Magnesium 1.9 mg/dL (1.6-2.6); Phosphorus 2.4 mg/dL (2.5-4.90)
[2021-04-02 04:11] LABS: Total Protein 4.7 g/dL (6.4-8.2)
[2021-04-02] MEDS: ALBUMIN 25% 100 ML IV SCH (04:26)
[2021-04-02] MEDS: D5W 5% 1,000 ML IV SCH (04:30)
[2021-04-02] MEDS: AMPICILLIN INJ 1 GM in SODIUM CHL 0.9% 50 ML IV SCH ×3 (05:41→17:32)
[2021-04-02 08:06] LABS: Red Cell Distribution Width 14.9 % (11.8-14.3); White Blood Cell 4.2 10^3/uL (4.4-10.8)
[2021-04-02 08:08] LABS: Hematocrit 25.5 % (36.0-46.0); Hemoglobin 8.5 g/dL (12.2-16.2); Mean Corpuscular Hemoglobin 31.4 pg (28.0-32.0); Mean Corpuscular Hgb Conc. 33.1 g/dL (32.0-36.0); Mean Corpuscular Volume 94.8 fL (80.0-100.0); Red Blood Cells 2.69 10^6/uL (4.0-5.20)
[2021-04-02 08:36] LABS: INR 1.57 (0.9-1.15)
[2021-04-02 08:37] LABS: Basophils % (manual) 0 (0.0-2.0); Blast Cells 0; Eosinophils % (manual) 0 (0-7); Metamyelocytes % 0; Myelocytes % 0; Promyelocytes % 0; Reactive Lymphocytes 0
[2021-04-02 08:46] LABS: Band Neutrophils % (manual) 24; Lymphocytes % (manual) 14 (10.0-50.0); Monocytes % (manual) 2 (0-12)
[2021-04-02] MEDS ORDERED: IOHEXOL 350 MG/ML 100ML IJ ONE (08:59)
[2021-04-02] MEDS ORDERED: LIDOCAINE 2%HCL (LOCAL ANESTH.) INJ 20ML MDV ONE (08:59)
[2021-04-02] MEDS: SODIUM CHLOR 0.9% PF (SALINE LOCK) 10ML VIAL/SYR IV SCH ×2 (09:01→21:42)
[2021-04-02] MEDS: PANTOPRAZOLE 40 MG/10 ML VIAL INJ IV SCH ×2 (09:01→21:42)
[2021-04-02] MEDS: LEVOTHYROXINE SODIUM 100 MCG/5 ML INJ IV SCH (09:02)
[2021-04-02] MEDS: ERTAPENEM SOD INJ 1 GM in SODIUM CHL 0.9% 50 ML IV SCH (09:02)
[2021-04-02] MEDS ORDERED: fentaNYL CITRATE 100 MCG/2 ML VL ONE (09:27)
[2021-04-02] MEDS ORDERED: ANGIOMAX 250 MG VIAL IV ONE (09:28)
[2021-04-02] MEDS ORDERED: SODIUM CHL 0.9% 50 ML ONE (09:28)
[2021-04-02] MEDS ORDERED: CLOPIDOGREL 300 MG TAB ONE (10:29)
[2021-04-02] MEDS ORDERED: POTASSIUM PHOSP IV ONE (12:00)
[2021-04-02] MEDS ORDERED: POTASSIUM PHOSPHATE IV ONE (12:00)
[2021-04-02] MEDS ORDERED: NS IV ONE (12:00)
[2021-04-02] MEDS ORDERED: SODIUM CHL 0.9% IV ONE (12:00)
[2021-04-02] MEDS: INSULIN LANTUS (GLARGINE) 1 /0.01ml (100units/ml) SC SCH ×2 (13:07→21:46)
[2021-04-02] MEDS ORDERED: CLOPIDOGREL BISULFATE 75 MG TAB ONE (13:19)
[2021-04-02] MEDS ORDERED: MIDAZOLAM HCL 2MG/2ML 2ml VIAL (1mg/ml) ONE (13:27)
[2021-04-02] MEDS: SOD CHL 0.45% WITH 20MEQ KCL 1,000 ML IV SCH ×3 (17:31→22:44)
[2021-04-02] MEDS ORDERED: TPN PER PHARMACY IV NR ×9 (20:00)
[2021-04-02] MEDS: TPN PER PHARMACY IV NR ×8 (20:07)
[2021-04-02] MEDS ORDERED: D5W/SOD CHL 0.45%/KCL 20MEQ 1,000 ML IV ONE (21:54)
[2021-04-03] VITALS (20 sets, daily range): BP systolic 122–153; BP diastolic 34–53
[2021-04-03] MEDS: AMPICILLIN INJ 1 GM in SODIUM CHL 0.9% 50 ML IV SCH ×4 (00:20→18:39)
[2021-04-03] MEDS: ACCU-CHEK COMFORT CURVE STRIP VI SCH ×4 (00:21→17:56)
[2021-04-03] MEDS: InsuLIN REG 1unit/0.01ml Soln (100units/ml) SC SCH ×4 (05:45→17:56)
[2021-04-03] MEDS: SOD CHL 0.45% WITH 20MEQ KCL 1,000 ML IV SCH (07:54)
[2021-04-03 08:00] LABS: Albumin 1.2 g/dL (3.4-5.0); BUN/Creatinine Ratio 86.2; Calcium 7.2 mg/dL (8.5-10.1); Potassium 4.5 mmol/L (3.5-5.1)
[2021-04-03 08:09] LABS: Bilirubin, Total 2.3 mg/dL (0.2-1.0); Phosphorus 3.2 mg/dL (2.5-4.90); Total Protein 4.7 g/dL (6.4-8.2)
[2021-04-03] MEDS: PANTOPRAZOLE 40 MG/10 ML VIAL INJ IV SCH ×2 (09:04→22:00)
[2021-04-03] MEDS: ERTAPENEM SOD INJ 1 GM in SODIUM CHL 0.9% 50 ML IV SCH (09:06)
[2021-04-03] MEDS: SODIUM CHLOR 0.9% PF (SALINE LOCK) 10ML VIAL/SYR IV SCH ×2 (09:06→22:00)
[2021-04-03] MEDS: LEVOTHYROXINE SODIUM 100 MCG/5 ML INJ IV SCH (09:07)
[2021-04-03] MEDS: CLOPIDOGREL BISULFATE 75 MG TAB PO SCH (09:07)
[2021-04-03] MEDS: INSULIN LANTUS (GLARGINE) 1 /0.01ml (100units/ml) SC SCH ×2 (10:15→22:00)
[2021-04-03] MEDS ORDERED: SOD CHL 0.45% 1,000 ML IV SCH (10:45)
[2021-04-03] MEDS: SOD CHL 0.45% 1,000 ML IV SCH ×2 (11:21→18:45)
[2021-04-03] MEDS ORDERED: TPN PER PHARMACY IV NR ×9 (20:00)
[2021-04-04] VITALS (46 sets, daily range): BP systolic 109–162; BP diastolic 34–56
[2021-04-04] MEDS: SOD CHL 0.45% 1,000 ML IV SCH ×2 (02:00→10:45)
[2021-04-04] MEDS: InsuLIN REG 1unit/0.01ml Soln (100units/ml) SC SCH ×4 (06:00→18:00)
[2021-04-04] MEDS: ACCU-CHEK COMFORT CURVE STRIP VI SCH ×5 (06:00→18:39)
[2021-04-04] MEDS: AMPICILLIN INJ 1 GM in SODIUM CHL 0.9% 50 ML IV SCH ×5 (06:00→18:00)
[2021-04-04 06:23] LABS: Mean Corpuscular Volume 92.6 fL (80.0-100.0); Red Cell Distribution Width 14.6 % (11.8-14.3)
[2021-04-04 06:26] LABS: Hematocrit 19.8 % (36.0-46.0); Mean Corpuscular Hgb Conc. 34.5 g/dL (32.0-36.0); Red Blood Cells 2.13 10^6/uL (4.0-5.20)
[2021-04-04 06:33] LABS: Calcium 7.4 mg/dL (8.5-10.1); Magnesium 2.2 mg/dL (1.6-2.6); Potassium 4.1 mmol/L (3.5-5.1)
[2021-04-04 06:36] LABS: Bilirubin, Total 2.2 mg/dL (0.2-1.0); Phosphorus 3.8 mg/dL (2.5-4.90); Total Protein 4.7 g/dL (6.4-8.2)
[2021-04-04 06:55] LABS: Hemoglobin 6.8 g/dL (12.2-16.2)
[2021-04-04 06:56] LABS: Basophils % (manual) 0 (0.0-2.0); Blast Cells 0; Eosinophils % (manual) 0 (0-7); Myelocytes % 0; Promyelocytes % 0; Reactive Lymphocytes 0
[2021-04-04 08:11] LABS: Band Neutrophils % (manual) 21; Lymphocytes % (manual) 17 (10.0-50.0); Metamyelocytes % 2; Monocytes % (manual) 4 (0-12)
[2021-04-04] MEDS: HYDROmorphone HCL 2 MG/ML VL IV PRN ×2 (08:43→18:41)
[2021-04-04] MEDS: CLOPIDOGREL BISULFATE 75 MG TAB PO SCH (10:00)
[2021-04-04] MEDS: INSULIN LANTUS (GLARGINE) 1 /0.01ml (100units/ml) SC SCH (10:00)
[2021-04-04] MEDS: PANTOPRAZOLE 40 MG/10 ML VIAL INJ IV SCH ×2 (10:00→21:49)
[2021-04-04] MEDS: SODIUM CHLOR 0.9% PF (SALINE LOCK) 10ML VIAL/SYR IV SCH ×2 (10:00→22:10)
[2021-04-04] MEDS: LEVOTHYROXINE SODIUM 100 MCG/5 ML INJ IV SCH (10:00)
[2021-04-04] MEDS: ERTAPENEM SOD INJ 1 GM in SODIUM CHL 0.9% 50 ML IV SCH (11:00)
[2021-04-04] MEDS ORDERED: ALBUMIN 25% 100 ML IV ONE (15:15)
[2021-04-04] MEDS ORDERED: TPN PER PHARMACY IV NR ×7 (20:00)
[2021-04-05] VITALS (85 sets, daily range): BP systolic 86–154; BP diastolic 26–56
[2021-04-05] MEDS: INSULIN LANTUS (GLARGINE) 1 /0.01ml (100units/ml) SC SCH ×3 (02:43→22:00)
[2021-04-05] MEDS: ACCU-CHEK COMFORT CURVE STRIP VI SCH ×3 (02:46→13:26)
[2021-04-05] MEDS: HYDROmorphone HCL 2 MG/ML VL IV PRN (03:28)
[2021-04-05 04:14] LABS: Basophils # (auto) 0 10 ^3/uL (0-0.2); Basophils % (auto) 0.4 % (0.0-2.0); Hematocrit 21.7 % (36.0-46.0); Hemoglobin 7.3 g/dL (12.2-16.2); Mean Corpuscular Hgb Conc. 33.8 g/dL (32.0-36.0); Red Cell Distribution Width 14.9 % (11.8-14.3); White Blood Cell 4.8 10^3/uL (4.4-10.8)
[2021-04-05 04:15] LABS: Eosinophils # (auto) 0.1 10 ^3/uL (0-0.8); Eosinophils % (auto) 1.2 % (0.0-7.0); Lymphocytes # (auto) 0.6 10 ^3/uL (0.4-5.4); Lymphocytes % (auto) 13.2 % (10.0-50.0); Mean Corpuscular Hemoglobin 31.3 pg (28.0-32.0); Mean Corpuscular Volume 92.5 fL (80.0-100.0); Monocytes # (auto) 0.1 10 ^3/uL (0-1.3); Monocytes % (auto) 2.7 % (0.0-12.0); Neutrophils % (auto) 82.5 % (37.0-80.0); Nucleated Red Blood Cells % 0.3 %; Red Blood Cells 2.34 10^6/uL (4.0-5.20)
[2021-04-05 04:41] LABS: Albumin 1.2 g/dL (3.4-5.0); Calcium 7.4 mg/dL (8.5-10.1); Magnesium 2.4 mg/dL (1.6-2.6); Potassium 4.1 mmol/L (3.5-5.1)
[2021-04-05 04:44] LABS: Bilirubin, Total 2.3 mg/dL (0.2-1.0); Phosphorus 4.2 mg/dL (2.5-4.90); Total Protein 4.7 g/dL (6.4-8.2)
[2021-04-05] MEDS: AMPICILLIN INJ 1 GM in SODIUM CHL 0.9% 50 ML IV SCH ×5 (05:06→18:11)
[2021-04-05] MEDS: InsuLIN REG 1unit/0.01ml Soln (100units/ml) SC SCH ×4 (06:00→18:09)
[2021-04-05] MEDS ORDERED: FUROSEMIDE 40 MG/4 ML VIAL IV ONE ×2 (09:30→17:45)
[2021-04-05] MEDS: SODIUM CHLOR 0.9% PF (SALINE LOCK) 10ML VIAL/SYR IV SCH ×2 (10:00→22:00)
[2021-04-05] MEDS: ERTAPENEM SOD INJ 1 GM in SODIUM CHL 0.9% 50 ML IV SCH (10:00)
[2021-04-05] MEDS: CLOPIDOGREL BISULFATE 75 MG TAB PO SCH (10:00)
[2021-04-05] MEDS: PANTOPRAZOLE 40 MG/10 ML VIAL INJ IV SCH ×2 (10:00→22:00)
[2021-04-05] MEDS: LEVOTHYROXINE SODIUM 100 MCG/5 ML INJ IV SCH (10:00)
[2021-04-05] MEDS ORDERED: ALBUMIN 25% 100 ML IV ONE (17:15)
[2021-04-05] MEDS ORDERED: ACETAMINOPHEN 650 mg PER 20.3 mL UD GT PRN (17:15)
[2021-04-05] MEDS: NOREPINEPHRINE 8 MG/250ML KIT 250 ML IV SCH (17:15)
[2021-04-05] MEDS ORDERED: TPN PER PHARMACY IV NR ×7 (20:00)
[2021-04-06] VITALS (39 sets, daily range): BP systolic 87–156; BP diastolic 30–60
[2021-04-06 04:10] LABS: Basophils # (auto) 0 10 ^3/uL (0-0.2); Eosinophils # (auto) 0 10 ^3/uL (0-0.8); Hemoglobin 7.2 g/dL (12.2-16.2); Monocytes # (auto) 0.1 10 ^3/uL (0-1.3)
[2021-04-06 04:13] LABS: Basophils % (auto) 0.6 % (0.0-2.0); Eosinophils % (auto) 0.7 % (0.0-7.0); Hematocrit 21.8 % (36.0-46.0); Lymphocytes # (auto) 0.7 10 ^3/uL (0.4-5.4); Lymphocytes % (auto) 14.3 % (10.0-50.0); Mean Corpuscular Hemoglobin 31.2 pg (28.0-32.0); Mean Corpuscular Hgb Conc. 32.9 g/dL (32.0-36.0); Mean Corpuscular Volume 94.7 fL (80.0-100.0); Monocytes % (auto) 2.1 % (0.0-12.0); Neutrophils # (auto) 3.8 10 ^3/uL (1.6-8.6); Neutrophils % (auto) 82.3 % (37.0-80.0); Red Cell Distribution Width 15.3 % (11.8-14.3); White Blood Cell 4.6 10^3/uL (4.4-10.8)
[2021-04-06 04:35] LABS: Albumin 1.4 g/dL (3.4-5.0); BUN/Creatinine Ratio 77.8; Calcium 7.6 mg/dL (8.5-10.1); Magnesium 2.4 mg/dL (1.6-2.6); Potassium 4.1 mmol/L (3.5-5.1)
[2021-04-06 04:38] LABS: Bilirubin, Total 2.2 mg/dL (0.2-1.0); Phosphorus 5.1 mg/dL (2.5-4.90)
[2021-04-06] MEDS: AMPICILLIN INJ 1 GM in SODIUM CHL 0.9% 50 ML IV SCH ×5 (06:00→17:11)
[2021-04-06] MEDS: ACCU-CHEK COMFORT CURVE STRIP VI SCH ×4 (06:00→17:05)
[2021-04-06] MEDS: InsuLIN REG 1unit/0.01ml Soln (100units/ml) SC SCH ×4 (06:40→17:05)
[2021-04-06] MEDS: PANTOPRAZOLE 40 MG/10 ML VIAL INJ IV SCH ×2 (09:55→22:01)
[2021-04-06] MEDS: SODIUM CHLOR 0.9% PF (SALINE LOCK) 10ML VIAL/SYR IV SCH ×2 (09:56→21:59)
[2021-04-06] MEDS: ERTAPENEM SOD INJ 1 GM in SODIUM CHL 0.9% 50 ML IV SCH (09:58)
[2021-04-06] MEDS ORDERED: CLOPIDOGREL BISULFATE 75 MG TAB PO SCH (10:00)
[2021-04-06] MEDS: LEVOTHYROXINE SODIUM 100 MCG/5 ML INJ IV SCH (10:00)
[2021-04-06] MEDS: INSULIN LANTUS (GLARGINE) 1 /0.01ml (100units/ml) SC SCH ×2 (11:41→22:00)
[2021-04-06] MEDS ORDERED: FUROSEMIDE 100 MG/10ML VIAL IV ONE (15:00)
[2021-04-06] MEDS ORDERED: LORazepam 2MG/ML-1ML VIAL IV PRN (15:45)
[2021-04-06] MEDS ORDERED: MORPHINE SULFATE INJECTION 2 MG/ML SYRG IV PRN (15:45)
[2021-04-06] MEDS: ALBUMIN 25% 100 ML IV SCH (18:24)
[2021-04-06] MEDS ORDERED: TPN PER PHARMACY IV NR ×6 (20:00)
[2021-04-06] MEDS ORDERED: ATROPINE SULFATE 1 MG/1 ML VIAL ONE (21:23)
[2021-04-06] MEDS ORDERED: PHENYLEPHRINE IV 250 ML IV SCH (23:15)
[2021-04-06] MEDS ORDERED: PHENYLEPHRINE IV 250 ML IV ONE (23:22)
[2021-04-06] MEDS ORDERED: VASOPRESSIN 50 UNITS in D5W 5% 247.5 ML IV SCH (23:30)
[2021-04-07] VITALS (13 sets, daily range): BP systolic 99–154; BP diastolic 29–55
[2021-04-07] MEDS: AMPICILLIN INJ 1 GM in SODIUM CHL 0.9% 50 ML IV SCH (00:12)
[2021-04-07] MEDS: InsuLIN REG 1unit/0.01ml Soln (100units/ml) SC SCH (00:13)
[2021-04-07] MEDS: ACCU-CHEK COMFORT CURVE STRIP VI SCH (00:14)
[2021-04-07] MEDS: NOREPINEPHRINE 8 MG/250ML KIT 250 ML IV SCH (02:19)
[2021-04-07] MEDS: ALBUMIN 25% 100 ML IV SCH (02:48)
[2021-04-07] MEDS ORDERED: ATROPINE SULFATE 0.4 MG/1 ML VIAL ONE (03:06)
[2021-04-07] MEDS ORDERED: MORPHINE SULFATE INJECTION 2 MG/ML SYRG IV STA (04:00)
[2021-04-07] MEDS ORDERED: MORPHINE SULFATE INJECTION 2 MG/ML SYRG IV ONE (04:00)
[2021-04-07] MEDS ORDERED: ATROPINE SULF 1 MG/10ml SYR IV ONE (12:39)
[2021-04-07] MEDS ORDERED: EPINEPHrine HCL 1 MG/10 ML SYRG IV ONE (12:39)
== END 2021-04-07 15:03 | DRG 710 ==
LOC: ER 10:07 → OVERFLOW 15:24 → ICU WEST 03-24 12:14
PROVIDERS: ADMIT Hospitalist; ATTEND Internal Medicine
PROC: 30233K1 Transfusion of Nonautologous Frozen Plasma into Peripheral Vein, Percutaneous Approach (ICD-10-PCS; 2021-03-23)
PROC: 05HM33Z Insertion of Infusion Device into Right Internal Jugular Vein, Percutaneous Approach (ICD-10-PCS; principal; 2021-03-24)
PROC: B543ZZA Ultrasonography of Right Jugular Veins, Guidance (ICD-10-PCS; 2021-03-24)
PROC: 0W9H30Z Drainage of Retroperitoneum with Drainage Device, Percutaneous Approach (ICD-10-PCS; 2021-03-24)
PROC: 30233R1 Transfusion of Nonautologous Platelets into Peripheral Vein, Percutaneous Approach (ICD-10-PCS; 2021-04-01)
PROC: 047L3DZ Dilation of Left Femoral Artery with Intraluminal Device, Percutaneous Approach (ICD-10-PCS; 2021-04-02)
PROC: B410YZZ Fluoroscopy of Abdominal Aorta using Other Contrast (ICD-10-PCS; 2021-04-02)
PROC: 30233N1 Transfusion of Nonautologous Red Blood Cells into Peripheral Vein, Percutaneous Approach (ICD-10-PCS; 2021-04-04)
DX: A41.51 Sepsis due to Escherichia coli [E. coli] (principal); N17.0 Acute kidney failure with tubular necrosis; G93.41 Metabolic encephalopathy; E43 Unspecified severe protein-calorie malnutrition; K35.33 Acute appendicitis with perforation, localized peritonitis, and gangrene, with abscess; I21.A1 Myocardial infarction type 2; U07.1 COVID-19; D68.9 Coagulation defect, unspecified; L89.159 Pressure ulcer of sacral region, unspecified stage; E86.9 Volume depletion, unspecified; E87.0 Hyperosmolality and hypernatremia; E66.01 Morbid (severe) obesity due to excess calories; E11.52 Type 2 diabetes mellitus with diabetic peripheral angiopathy with gangrene; E78.5 Hyperlipidemia, unspecified; Z68.37 Body mass index [BMI] 37.0-37.9, adult; Z20.822 Contact with and (suspected) exposure to COVID-19; E87.5 Hyperkalemia; Z66 Do not resuscitate; D69.59 Other secondary thrombocytopenia; L03.311 Cellulitis of abdominal wall; E11.22 Type 2 diabetes mellitus with diabetic chronic kidney disease; K76.0 Fatty (change of) liver, not elsewhere classified; K80.20 Calculus of gallbladder without cholecystitis without obstruction; N18.9 Chronic kidney disease, unspecified; E11.42 Type 2 diabetes mellitus with diabetic polyneuropathy; N39.0 Urinary tract infection, site not specified; R00.1 Bradycardia, unspecified; R79.89 Other specified abnormal findings of blood chemistry; E87.1 Hypo-osmolality and hyponatremia; Z51.5 Encounter for palliative care; E11.65 Type 2 diabetes mellitus with hyperglycemia
CPT/HCPCS: 10005; 36415; 36569; 36600; 70450; 71045; 73700; 74018; 74150; 74176; 76705; 76856; 77012; 80053; 80061; 81001; 82010; 82040; 82570; 82728; 82805; 82962; 83036; 83605; 83690; 83735; 83880; 83930; 83935; 84100; 84156; 84300; 84439; 84443; 84478; 84481; 84484; 84550; 85007; 85014; 85018; 85025; 85027; 85379; 85610; 85652; 85730; 86141; 86850; 86900; 86901; 86920; 87040; 87077; 87086; 87088; 87186; 87205; 87426; 93005; 93306; 93925; 93970; 96361; 96365; 96368; 99152; 99153; 99291; C1729; C1887; C9113; G0378; J0461; J0696; J1335; J1815; J2001; J2250; J2405; J3430; J3490; J7060; P9047